=== PATIENT | female | born 1965 | race Caucasian/White ===

== ENCOUNTER 2017-06-11 10:08 | Inpatient (IN) | payer OTHER ==
[2017-06-11] VITALS (36 sets, daily range): BP systolic 94–130; BP diastolic 51–69; PULSE 65–86; RESP 12–27; Ht 177.8 cm; Wt 81.0 kg
[~2017-06-11] VITALS: Ht 177.8 cm; Wt 81.0 kg
[~2017-06-11 10:08] MED LIST: ROCURONIUM 50 MG INJ ONE
[2017-06-11] MEDS ORDERED: CEFAZOLIN 1 GM INJ ONE (10:48)
[2017-06-11] MEDS ORDERED: PROPOFOL 20 ML ONE (10:48)
[2017-06-11] MEDS ORDERED: FENTAnyl 50 MCG/ML VIAL ONE ×2 (10:48→14:53)
[2017-06-11] MEDS ORDERED: MIDAZOLAM 1 MG/ML 2 ML INJ ONE (10:48)
[2017-06-11] MEDS ORDERED: ROCURONIUM 50 MG INJ ONE (10:48)
[2017-06-11] MEDS ORDERED: BUPIVACAINE 0.5% ON-Q-PUMP 0 ML ONE (13:12)
[2017-06-11] MEDS ORDERED: LIDOCAINE 2%/EPI 30 ML INJ ONE (13:12)
[2017-06-11] MEDS ORDERED: GENTAMICIN 80 MG INJ ONE (13:12)
[2017-06-11] MEDS ORDERED: POLYMYXIN/BACITRACIN 1L IRRIG ONE (13:12)
[2017-06-11] MEDS ORDERED: BUPIVACAINE 0.5% (SDV) 30 ML INJ ONE (13:12)
[2017-06-11] MEDS ORDERED: SODIUM CL BACTERIOSTATIC 30 ML INJ ONE (14:12)
[2017-06-11] MEDS ORDERED: BUPIVACAINE 0.5%/EPI (SDV) 10 ML INJ ONE (14:16)
[2017-06-11] MEDS ORDERED: BUPIVACAINE LIPOSOME/PF 266 MG/20 ML VIAL INFIL SCH (15:00)
[2017-06-11] MEDS ORDERED: FENTAnyl 50 MCG/ML VIAL IV PRN ×3 (15:00)
[2017-06-11] MEDS ORDERED: DIPHENHYDRAMINE 50 MG INJ IV PRN ×2 (15:00)
[2017-06-11] MEDS ORDERED: METOCLOPRAMIDE 10 MG INJ IV PRN (15:00)
[2017-06-11] MEDS ORDERED: ACETAMINOPHEN 325 MG TAB PO PRN (15:00)
[2017-06-11] MEDS ORDERED: ALBUMIN HUMAN 5% 250 ML IV PRN (15:00)
[2017-06-11] MEDS ORDERED: LABETALOL HCL 20MG INJ IV PRN (15:00)
[2017-06-11] MEDS ORDERED: MEPERIDINE 25 MG INJ IV PRN (15:00)
[2017-06-11] MEDS ORDERED: morphine 2 MG INJ IV PRN (15:00)
[2017-06-11] MEDS ORDERED: ONDANSETRON 4 MG INJ IV PRN ×2 (15:00)
[2017-06-11] MEDS ORDERED: EPHEDrine SULFATE 50 MG/5 ML SYG IV PRN (15:00)
[2017-06-11] MEDS ORDERED: hydrALAzine 20 MG INJ IV PRN (15:00)
[2017-06-11] MEDS ORDERED: HYDROmorphONE (0.2 MG/ML) 10ML SYG IV PRN ×2 (15:00)
[2017-06-11] MEDS ORDERED: ACETAMINOPHEN 1000MG/100ML IV 100 ML ONE (16:12)
[2017-06-11] MEDS ORDERED: DEXAMETHASONE 4 MG/ML 1 ML INJ ONE (16:12)
[2017-06-11] MEDS ORDERED: ONDANSETRON 4 MG INJ ONE (16:12)
[2017-06-11] MEDS ORDERED: METOCLOPRAMIDE 10 MG INJ ONE (16:12)
[2017-06-11] MEDS ORDERED: SUGAMMADEX SODIUM 200 MG/2 ML VIAL IV ONE (16:13)
--- NOTE | 2017-06-11 17:11 | OPR ---
Date/Time of Note Date/Time of Note DATE: 06/11/17 TIME: 17:01 Operative Report Free Text/Dictation Plastic Surgery Operative Report Preoperative diagnosis: Postoperative diagnosis: Procedure: Surgeon: Olayinkat.: Anesthesia: EBL: IV fluids: Findings: Complications: Dispo: Indications for procedure: 51 yo F patient presents for left tissue key account coordinator breast reconstruction with alloderm. The risks, benefits, and alternatives of performing this procedure were discussed with the patient including the risks of bleeding, infection, wound healing problems, key account coordinator extrusion, pain and tightness, need for removal. We discussed that if radiation is involved, it may alter the outcome. The risk of asymmetry and need for revision surgery were also discussed. The patient states that she understands these risks and would like to proceed with the procedure. All questions were answered, no guarantees were given with regards the outcome of this procedure. Description of procedure: The patient was brought to the operating room at [facility] where general anesthesia was induced, and the patient was prepped and draped in the usual sterile fashion. The mastectomy was performed by Dr. Doe and will be dictated separately. At the completion of that portion of the case, I scrubbed into the case, and irrigated the breast with extensive antibiotic irrigation to remove all loose fat particles. Next, meticulous hemostasis was achieved with the bipolar cautery. An additional round of irrigation and hemostasis was carried out. Next, the breast was inspected, and a piece of AlloDerm contour medium was opened, rinsed in normal saline to remove the preservative, and was anchored in place medially, inferiorly, and laterally to re-create the lower border of the breast with 2-0 Vicryl suture. Next, a piece of AlloDerm contour large perforated was opened, rinsed in normal saline to remove the preservative, and was placed in the left breast and sutured to the upper medial and lateral breast with 2-0 vicryl suture. The base width was then measured and was found to be approximately 14cm. Therefore, an [employer] [id number] tissue key account coordinator was opened, rinsed in antibiotic irrigation, the air was evacuated, and then gloves were changed and this was inserted into the left breast and was sutured in place with 2-0 Vicryl suture. Next, a total of 60 cc of air was injected into the key account coordinator. Finally, the pectoralis muscle was anchored to the AlloDerm, and then an additional round of hemostasis and irrigation was carried out. 60 cc of a dilute exparel solution was injected around the breast, and 2 x 15 Dharmesh drains were inserted through a stab incision in the axilla and were secured in place with 2-0 nylon suture. The breast was then closed with 3-0 Vicryl suture and 4- 0 Monocryl suture and was dressed with Dermabond, Tegaderm, and an ABD. 420cc of air were injected for a total of 480cc. the patient tolerated this procedure well, there were no complications, she will remain tonight. Surgeon see signature line LUIS BUSH MD Jun 11, 2017 17:11
--- NOTE | 2017-06-11 17:12 | HPN ---
Date/Time of Note Date/Time of Note DATE: 06/11/17 TIME: 17:12 Interval H&P Admission Note Pt. seen H&P reviewed: No system changes LUIS BUSH MD Jun 11, 2017 17:12
--- NOTE | 2017-06-11 17:43 | OPR ---
DATE OF OPERATION: 06/11/2017 PREOPERATIVE DIAGNOSIS: Multicentric left breast cancer. POSTOPERATIVE DIAGNOSIS: Multicentric left breast cancer. OPERATIVE PROCEDURE: Left modified radical mastectomy, with immediate reconstruction. ANESTHESIA: General. ANESTHESIOLOGIST: Ugo Heredia MD SURGEONS: 1. Tyson Doe MD 2. Plastic surgeon, Sonido Hernandez MD HIGH SCHOOL DRAFTING TEACHER: Humble Carlos MD INDICATIONS FOR PROCEDURE: Patient is a 51-year-old female who underwent surveillance mammography. She was found to have several suspicious areas in the left breast. Subsequent biopsy confirmed a cancer at both the 2 o'clock and the 5 o'clock locations. On MRI, there was a 3rd suspicious lesion in the subareolar location. Based on the fact that she had multicentric disease, it was recommended that she undergo modified radical mastectomy. She requested reconstruction, was seen by attending Plastic surgeon, Dr. Sonido Hernandez and consented for immediate implant reconstruction. She was scheduled for surgery. OPERATION PERFORMED: The patient was brought to the operating theater, placed under general endotracheal tube anesthesia. The left breast was prepped and draped in usual sterile fashion. An elliptical incision was made around the nipple-areolar complex, including portions of both medial and lateral aspect of the skin overlying the breast. Subcutaneous tissue was dissected with cautery. Allis-Latimer skin clamps were used to elevate the skin edges. Skin flaps were then created using cautery in a sequential fashion, first superiorly to the clavicle, then medially to the sternal border, inferiorly to the inframammary fold and laterally until the latissimus dorsi muscle was identified throughout its course. Mastectomy then took place from medial to lateral, using cautery at the border of the pectoralis major muscle. The pectoralis minor muscle was identified. The clavipectoral fascia was incised with blunt dissection along the chest wall. The long thoracic nerve was identified and kept out of harm's way. More superiorly, the axillary vein was identified and dissected from medial to lateral. The thoracodorsal neurovascular bundle was identified and dissected throughout its course, kept out of harm's way. Level 1 and some level 2 node-bearing tissue was then meticulously harvested, using the LigaSure device. The remaining connective tissue attachments to the latissimus dorsi muscle were then transected with cautery. Specimen was then oriented and sent for permanent pathologic analysis. The wound was irrigated. Minimal bleeding was controlled with cautery. At this point, Plastic surgeon, Dr. Sonido Hernandez entered the room, took over control of the operation, and he will dictate his part of the operation separately. ESTIMATED BLOOD LOSS: For Dr. Doe' portion of the operation was approximately 150 mL. The patient remained stable throughout the course of Dr. Doe' portion of the surgery. Dictated By: Tyson Doe MD /[email or web address] /Document#: [id number]
[2017-06-11] MEDS: HYDROmorphONE (0.2 MG/ML) 10ML SYG IV PRN ×2 (17:52→18:48)
[2017-06-11] MEDS: HYDROCODONE/APAP (10/325) TAB PO PRN (21:00)
[2017-06-11] MEDS: LACTATED RINGER'S 1,000 ML IV SCH (21:09)
[2017-06-12] VITALS: BP 117/62; RESP 18
[2017-06-12] MEDS: LACTATED RINGER'S 1,000 ML IV SCH ×2 (00:45→10:45)
[2017-06-12 01:00] VITALS: BP 115/65; RESP 18
[2017-06-12 02:36] VITALS: BP 94/50; RESP 18
[2017-06-12] MEDS: HYDROCODONE/APAP (10/325) TAB PO PRN ×2 (03:11→10:54)
--- NOTE | 2017-06-12 07:53 | PN ---
Date/Time of Note Date/Time of Note DATE: 06/12/17 TIME: 07:52 Assessment/Plan Lines/Catheters IV Catheter Type (from Nrsg): Peripheral IV Assessment/Plan Assessment/Plan discharge to home today follow up with dr pierre at scheduled appointment patient has Rx and instructions Subjective 24 Hr Interval Summary no acute events overnight, pain controlled on current regimen Exam/Review of Systems Vital Signs Vitals Vital Signs Date Time Temp Pulse Resp B/P Pulse Ox O2 Delivery O2 Flow Rate FiO2 06/12/17 02:36 98.3 58 18 94/50 97 06/12/17 01:00 Room Air Intake and Output 06/11/17 06/11/17 06/12/17 15:00 23:00 07:00 Intake Total 1200 ml 2750 ml Output Total 190 ml 1905 ml Balance 1010 ml 845 ml Exam Free Text/Dictation pleasant, cooperative breast incision intact, no erythema. flaps soft, well perfused LUIS PIERRE MD Jun 12, 2017 07:53
--- NOTE | 2017-06-12 07:54 | DS ---
Date/Time of Note Date/Time of Note DATE: 06/12/17 TIME: 07:53 Discharge Summary Admission/Discharge Info Admit Date/Time Jun 11, 2017 at 10:08 Discharge Date/Time 06/12/17 after breakfast Discharge Diagnosis left breast cancer Procedures left mastectomy and tissue project crew worker reconstruction with alloderm Hospital Course uncomplicated Home Meds No Active Prescriptions or Reported Meds Primary Care Provider Forrest Marin MD Time spent on discharge: < 30 minutes LUIS BUSH MD Jun 12, 2017 07:54
[2017-06-12 08:54] VITALS: BP 104/61; RESP 18
== END 2017-06-12 11:40 | disposition home or self-care (01) | DRG 581 ==
LOC: REC 10:08 → MS1 20:05
PROVIDERS: ADMIT Surgery Surgical Oncology; ATTEND Surgery Surgical Oncology
PROC: 0HHU0NZ Insertion of Tissue Expander into Left Breast, Open Approach (ICD-10-PCS; 2017-06-11)
PROC: 0HTU0ZZ Resection of Left Breast, Open Approach (ICD-10-PCS; principal; 2017-06-11 12:00)
PROC: 07B60ZX Excision of Left Axillary Lymphatic, Open Approach, Diagnostic (ICD-10-PCS; 2017-06-11 12:00)
DX: C50.412 Malignant neoplasm of upper-outer quadrant of left female breast (principal); C50.512 Malignant neoplasm of lower-outer quadrant of left female breast; Z17.0 Estrogen receptor positive status [ER+]; Z87.891 Personal history of nicotine dependence
CPT/HCPCS: 84703; 88307; C1762; C1789; C9290; J0131; J0690; J1100; J1170; J1580; J2175; J2250; J2270; J2405; J2765; J3010; J7120

== ENCOUNTER 2017-12-10 06:09 | Day surgery (SDC) | END 2017-12-10 12:18 | disposition home or self-care (01) ==

== ENCOUNTER 2018-03-18 13:27 | Day surgery (SDC) | END 2018-03-18 19:33 | disposition home or self-care (01) ==